=== PATIENT | female | born 1995 | race African-American/Black ===

== ENCOUNTER 2022-02-11 15:16 | Emergency (ER) | payer OTHER, SELFPAY ==
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
[2022-02-11 15:30] VITALS: BP 112/64; PULSE 77; RESP 18; TEMP 36.8; O2SAT 100
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
[2022-02-11 17:12] VITALS: BP 112/76; PULSE 72; RESP 20; O2SAT 99
== END 2022-02-11 17:13 | disposition home or self-care (01) ==
LOC: ANHED 17:01
PROVIDERS: Emergency Provider Nurse Practitioner Family
DX: S13.4XXA Sprain of ligaments of cervical spine, initial encounter (principal); R07.89 Other chest pain; V49.40XA Driver injured in collision with unspecified motor vehicles in traffic accident, initial encounter
CPT/HCPCS: 71046; 72125; 99284